=== PATIENT | male | born 1990 | race Two or more races ===

== ENCOUNTER 2022-02-10 04:01 | Emergency (ER) | payer SELFPAY ==
[~2022-02-10] VITALS: Ht 175.3 cm; Wt 65.4 kg
[2022-02-10] MEDS ORDERED: PERTUSS(ACELL),DIPH,TET VAC/PF 0.5 ML SYRINGE IM. ONE (06:30)
[2022-02-10] MEDS ORDERED: HYDROGEN PEROXIDE 118 ML SOLUTION ONE (07:39)
[2022-02-10] MEDS ORDERED: ONDANSETRON HCL 4 MG TABLET PO ONE (07:45)
[2022-02-10] MEDS ORDERED: LIDOCAINE 1% 10 ML VIAL ID ONE (07:45)
[2022-02-10] MEDS ORDERED: HYDROGEN PEROXIDE 118 ML SOLUTION TP ONE (07:45)
[2022-02-10] MEDS ORDERED: BACITRACIN 0.9 GM PACKET OINTMENT TP ONE (08:15)
[2022-02-10 08:17] VITALS: BP 124/72
== END 2022-02-10 08:41 | disposition home or self-care (01) ==
LOC: EMS 04:02
DX: S01.81XA Laceration without foreign body of other part of head, initial encounter (principal); V00.841A Fall from standing electric scooter, initial encounter; Y93.I9 Activity, other involving external motion; Y92.89 Other specified places as the place of occurrence of the external cause; Y99.8 Other external cause status
CPT/HCPCS: 12011; 72040; 90471; 90715; 99283; J3490; Q0162